=== PATIENT | female | born 1945 | race Caucasian/White ===

== ENCOUNTER 2016-07-15 14:57 | Emergency (ER) | payer MEDICARE ==
[2016-07-15 14:04] LABS: BASOPHILS 0.3 %; BASOPHILS ABSOLUTE 0.03 10/3/uL (0.0-0.16); EOSINOPHILS 2.1 %; EOSINOPHILS ABSOLUTE 0.22 10/3/uL (0.0-0.53); ER CBC TAT 0 Hrs 09 Mins; HEMOGLOBIN 13.6 g/dL (12.0-16.0); IMMATURE GRANULOCYTES 0.2 %; IMMATURE GRANULOCYTES ABSOLUTE 0.02 10/3/uL (0.0-0.11); LYMPHOCYTES ABSOLUTE 2.34 10/3/uL (0.67-4.30); MEAN CORPUS HGB CONC 33.2 g/dL (32.0-36.0); MEAN CORPUSCULAR VOLUME 78.4 fL (80-100); MEAN PLATELET VOLUME 10.5 fL (9.2-13.0); MONOCYTES ABSOLUTE 0.64 10/3/uL (0.21-1.20); NEUTROPHILS 69.4 %; NEUTROPHILS ABSOLUTE 7.39 10/3/uL (2.02-8.40); PLATELET COUNT 497 10/3/uL (150-400); RBC DISTRIBUTION WIDTH 16.7 % (12.0-16.0); RED CELL COUNT 5.23 10/6/uL (4.0-5.6); WHITE BLOOD CELLS 10.6 10/3/uL (4.5-10.5)
[2016-07-15 14:05] LABS: MANUAL DIFF NO %
[2016-07-15 14:09] LABS: PROTIME (NOT ORD) 13.3 SEC (12.0-14.5)
[2016-07-15 14:10] LABS: PARTIAL THROMBO TIME 44.9 SEC (22.5-37.2)
[2016-07-15 14:23] LABS: BUN (BLOOD UREA NITROGEN) 35 MG/DL (6-23); CALCIUM, SERUM 9.9 MG/DL (8.5-10.4); CHEST PAIN PROFILE TAT 0 Hrs 28 Mins; CHLORIDE, SERUM 105 MMOL/L (96-112); CO2 (CARBON DIOXIDE) 26 MMOL/L (24-34); CREATININE 1.39 MG/DL (0.55-1.02); GFR AFRICAN AMERICAN 45 ML/MIN (>=60); GFR NON AFRICAN AMERICAN 39 ML/MIN (>=60); GLUCOSE, SERUM 272 MG/DL (60-99); POTASSIUM, SERUM 4.7 MMOL/L (3.5-5.3); SODIUM, SERUM 138 MMOL/L (135-148); TROPONIN I <0.02 NG/ML (<0.05)
[~2016-07-15 14:57] MED LIST: AMARYL4 PO; ASA5GR PO; BENICAR HCT1 TAB PO; BYETTA10 SC; COREG6 PO; DSS PO; ESTRATEST PO; L20 PO; MICRO-K10 MEQ PO; NITROSTAT0.4 MG SL; PLAVIX PO; PR25 PO; PRILO PO; REG PO; TYLENOL ARTH650 MG PO; ZOFRAN4 PO
[2016-07-17] MEDS ORDERED: ASAB PO (10:46)
[2016-07-17] MEDS ORDERED: ACET500CAP PO (10:46)
[2016-07-17] MEDS ORDERED: AMARYL4 PO (10:47)
[2016-07-17] MEDS ORDERED: LANTUS SC (10:47)
[2016-07-17] MEDS ORDERED: NEXIUM40 PO (10:48)
[2016-07-17] MEDS ORDERED: COZ25 PO (10:48)
[2016-07-17] MEDS ORDERED: RANITIDINE300 MG PO (10:48)
== END 2016-07-15 15:10 | disposition home or self-care (01) ==
LOC: ER 14:57
PROVIDERS: Hospitalist
DX: I12.9 Hypertensive chronic kidney disease with stage 1 through stage 4 chronic kidney disease, or unspecified chronic kidney disease (principal); N18.3 Chronic kidney disease, stage 3 (moderate); Z95.5 Presence of coronary angioplasty implant and graft; Z88.5 Allergy status to narcotic agent; Z79.02 Long term (current) use of antithrombotics/antiplatelets; Z79.82 Long term (current) use of aspirin; Z79.899 Other long term (current) drug therapy
CPT/HCPCS: 80048; 83735; 84484; 85025; 85610; 85730; 93005; 99284; A9270-GY

== ENCOUNTER 2016-07-23 06:02 | Day surgery (SDC) | payer MEDICARE ==
--- NOTE | ~2016-07-23 | EGD ---
EGD REPORT [facility] [address] [id number] NAME: AIDE PATRICIA : 49 STATUS : REG [facility]#: [id number] AGE: 71 ADM/REG DATE : 07/23/16 MR#: [id number] REPORT SERV DATE: 07/23/16 DICTATED BY: ANGELA WALSH DATE: 07/23/16 REPORT STATUS : Draft TRANSCRIBED BY: [facility] DATE: 07/23/16 Endoscopy Center Patient Name: Aide Patricia Date of : 1945 Attending MD: ELISABETH WALSH MD Procedure Date No Time: 07/23/2016 Procedure: Upper GI endoscopy Indications: Epigastric abdominal pain, Nausea, Personal history of peptic ulcer disease Referring MD: MIKAEL GLASS Medicines: See the Anesthesia note for documentation of the administered medications Complications: No immediate complications. Estimated blood loss: None. Procedure: Pre-Anesthesia Assessment: - ASA Grade Assessment: III - A patient with severe systemic disease. - Prior to the procedure, a History and Physical was performed, and patient medications and allergies were reviewed. The patient's tolerance of previous anesthesia was also reviewed. The risks and benefits of the procedure and the sedation options and risks were discussed with the patient. All questions were answered, and informed consent was obtained. Prior Anticoagulants: The patient has taken aspirin and Plavix (clopidogrel), last doses were day of procedure. After reviewing the risks and benefits, the patient was deemed in satisfactory condition to undergo the procedure. After obtaining informed consent, the endoscope was passed under direct vision. Throughout the procedure, the patient's blood pressure, pulse, and oxygen saturations were monitored continuously. The GIF [id number] was introduced through the mouth, and advanced to the third part of duodenum. The upper GI endoscopy was accomplished without difficulty. The patient tolerated the procedure well. Findings: The examined duodenum was normal. Diffuse moderate inflammation characterized by erythema was found in the gastric antrum. Biopsies were taken with a cold forceps for histology. No other significant abnormalities were identified in a careful examination of the stomach. The cardia and gastric fundus were normal on retroflexion. The examined esophagus was normal. EGD REPORT [address] [address] NAME: AIDE PATRICIA : [birth year] [place]US [place] [facility] [place] [id number] AGE: 71 ADM/REG DATE : 07/23/16 MR#: [id number] REPORT SERV DATE: 07/23/16 DICTATED BY: ANGELA WALSH DATE: 07/23/16 REPORT STATUS : Draft TRANSCRIBED BY: [employer] DATE: 07/23/16 Impression: - Normal examined duodenum. - Gastritis. Biopsied. - Normal esophagus. Recommendation: - Patient has a contact number available for emergencies. The signs and symptoms of potential delayed complications were discussed with the patient. Return to normal activities tomorrow. Written discharge instructions were provided to the patient. - Regular diet. - Discharge patient to home. - Continue present medications. - Await pathology results. Procedure Code(s): --- Professional --- 13150, Esophagogastroduodenoscopy, flexible, transoral; with biopsy, single or multiple Diagnosis Code(s): --- Professional --- K29.70, Gastritis, unspecified, without bleeding R10.13, Epigastric pain R11.0, Nausea Z87.11, Personal history of peptic ulcer disease CPT copyright 2013 [employer]. All rights reserved. The codes documented in this report are preliminary and upon pastry finisher review may be revised to meet current compliance requirements. ELISABETH WALSH MD 07/23/2016 7:38 AM This report has been signed electronically. Number of Addenda: 0 Note Initiated On: 07/23/2016 7:22 AM Scope Withdrawal Time 0 hours 0 minutes 0 seconds [id number] [id number]
[~2016-07-23 06:02] MED LIST changes: +ACET500CAP PO; +ASAB PO; +COZ25 PO; +LANTUS SC; +NEXIUM40 PO; +RANITIDINE300 MG PO
== END 2016-07-23 23:59 | disposition home or self-care (01) ==
LOC: DMU 06:02
PROVIDERS: Internal Medicine Gastroenterology
PROC: 0DB78ZX Excision of Stomach, Pylorus, Via Natural or Artificial Opening Endoscopic, Diagnostic (ICD-10-PCS; principal; 2016-07-23 07:30)
DX: K29.70 Gastritis, unspecified, without bleeding (principal); I25.10 Atherosclerotic heart disease of native coronary artery without angina pectoris; I10 Essential (primary) hypertension; E11.9 Type 2 diabetes mellitus without complications; G47.33 Obstructive sleep apnea (adult) (pediatric); Z87.11 Personal history of peptic ulcer disease; Z98.890 Other specified postprocedural states; Z98.1 Arthrodesis status; Z96.652 Presence of left artificial knee joint
CPT/HCPCS: 82962; 88305; 88342